=== PATIENT | female | born 1980 ===

== ENCOUNTER 2024-07-15 07:23 | Emergency (ER) | payer MEDICAID, SELFPAY ==
[2024-07-15 07:29] VITALS: BP 142/78; PULSE 79; RESP 18; TEMP 36.4; O2SAT 95; BMI 35.6
--- NOTE | 2024-07-15 07:58 | ED_ITS ---
HPI - Skin/Abscess/Foreign Bdy General Chief complaint: Skin/Abscess/Foreign Body Stated complaint: Rash on hip Time Seen by Provider: 07/15/24 07:56 Source: patient Mode of arrival: ambulatory Limitations: no limitations History of Present Illness ED Provider: Myra Hernandez PA-C HPI narrative: 43 yo female presents to the ER for evaluation of a rash on her trunk after using a waist ultimate hoops trainer. She reports her entire trunk is red, irritated, burning and itching. It is on her front and back. She did not sleep due to her symptoms. She denies any associated fevers, chills, facial swelling, difficulty swallowing, wheezing or difficulty breathing. No history of allergic reactions or similar presentations in the past. MD complaint: rash Onset (ago): hour(s) Location: generalized and back Severity: severe Quality: burning and pruritic Pain Consistency: constant Relieving factors: other (Ice) Exacerbating factors: none Context: other (Waist ultimate hoops trainer/compressive device) Associated symptoms: denies other symptoms Treatments prior to arrival: none Related Data Previous Rx's ?Medication ?Instructions ?Recorded diphenhydramine HCl 25 mg capsule 50 mg (2 x 25 mg) PO TID PRN 07/15/24 (Benadryl) itching #20 caps prednisone 10 mg tablets in a dose See Taper PO DAILY #30 ea 07/15/24 pack Allergies Allergy/AdvReac Type Severity Reaction Status Date / Time Penicillins Allergy Rash Verified 07/15/24 07:33 Review of Systems Review of Systems: Yes all other systems are reviewed and are negative [facility] Social History Social History Alcohol intake: never Smoked in Last 30 Days: No Use of substances other than those prescribed or required for medical reasons: No Any prior treatment program specific to substance use: No Advance Directives: No Advance Directives Information Provided: Yes Patient : No Physical Exam Vital Signs: Vital Signs: Last Vital Signs Temp 97.5 F 07/15/24 09:14 Pulse 79 07/15/24 09:14 Resp 18 07/15/24 09:14 BP 142/78 H 07/15/24 09:14 Pulse Ox 95 07/15/24 09:14 O2 Del Method Room Air 07/15/24 09:14 BMI result Body Mass Index 35.6 Appearance: Alert. Oriented X3. No acute distress. HEENT: normal inspection no facial swelling. CVS: Normal heart rate and rhythm. Pulses normal. Respiratory: No respiratory distress. Speaking in complete sentences, no wheezing Skin: Skin warm and dry. Normal skin color. Normal skin turgor. On the anterior and posterior trunk there is a diffuse, erythematous, warm, pruritic rash involving the entire trunk. Extremities: Normal inspection, no lower extremity swelling, no joint swelling Neuro: Oriented X 3. Grossly normal, nonfocal Medical Decision Making Medical Decision Making MDM Narrative: 43-year-old female presenting to the ER for evaluation of a burning, itching, rash on her anterior and posterior trunk. The rash is pretty diffuse and covers a large surface area of her skin. It seems to be directly related to the garment she was wearing yesterday. Given the large surface area will treat with oral prednisone and p.r.n. Benadryl. Patient counseled and all questions were answered. Stable for discharge home. Differential Diagnosis Differential Diagnoses: The differential diagnosis associated with the presentation includes Contact dermatitis, allergic reaction, hypersensitivity reaction, heat rash Prescription Management I considered prescription management with: Pain Medication and Antibiotic Critical Care Time Critical Care Time Critical Care Time: No Discharge Plan Discharge Clinical Impression: Contact dermatitis Qualifiers: Contact dermatitis type: irritant Contact dermatitis trigger: unspecified trigger Qualified Code(s): L24.9 - Irritant contact dermatitis, unspecified cause Patient Disposition: Home, Self-Care Instructions: Contact Dermatitis (DC) Additional Instructions: take the prescribed prednisone as directed - complete the entire course take the prescribed benadryl every 6-8 hours as needed for rash/itching/burning use ice as needed for itching and burning keep open to air, no restrictive or tight clothing If you develop new or worsening symptoms call 911 or come back to the ER for further evaluation. Prescriptions: New prednisone 10 mg tablets,dose pack See Taper PO DAILY Qty: 30 0RF Taper: Prednisone 40 mg daily for 3 Days and 0 Hour 30 mg daily for 3 Days and 0 Hour 20 mg daily for 3 Days and 0 Hour 10 mg daily for 3 Days and 0 Hour Rx Instructions: 40 mg Daily x3 days, 30 mg daily x3 days, 20 mg daily x3 days, 10 mg daily x3 days diphenhydramine HCl [Benadryl] 25 mg capsule 50 mg PO TID PRN (Reason: itching) Qty: 20 0RF Interventions: ED Discharge Assessment Last Done: 07/15/24 09:14 Discharge Date/Time: 07/15/24 09:14 Print Language: Maori
--- OUTSIDE RECORDS SUMMARY | 2024-07-15 07:58 | XMS_ITS | Continuity of Care Document ---
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 Phone Unavailable Unavailable Unavailable Allergies, Adverse Reactions, Alerts Substance Reaction Status Criticality aspirin Itching Active No Information Penicillins Rash Active No Information Medications Medication Instructions Dosage Effective Dates (start - stop) Status Comments ibuprofen 600 mg tablet SI tab(s) or ally every 6 hours PRN(as needed for pain) with food or milk - Active Bactrim DS 800 mg-160 mg tablet SI tab(s) orally 2 times a day for 3 day(s) - Active levothyroxine oral 75 mcg (0.075 mg) SI tab(s) to 75 mcg orally once a day - Active Iophen oral SI mL orally every 4 to 6 hours for 5 day(s) PRN(as needed for cough) SUGAR FREE - Active Zithromax 500 mg tablet SI tab(s) or ally once a day for 5 day(s) - Active Protonix 40 mg granules delayed release for susp in packet SI tab(s) orally once a day - Active Procedures Procedure Date PSYCHIATRIC DIAGNOSTIC E EXPANDED OUT/PT TRANSVAGINAL ECHO URINALYSIS, NON-AUTOMATE EXPANDED OUT/PT EXPANDED OUT/PT EXPANDED OUT/PT EXPANDED OUT/PT PSYCHIATRIC DIAGNOSTIC E EXPANDED OUT/PT EXPANDED OUT/PT Results Test Name Date and Time Measure Units Reference Range Abnormal Flag Status Comments Panel Description: OBTAINING SCREEN PAP SMEAR U nknown Document 0 00:00:00 See [facility] Unknown [facility] Conversion NoResultDesc 0 00:00:00 Unknown Panel Description: 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) Unkn own Document 1 15:56:00 See [facility] Unknown [facility] Conversion Image 1 15:56:00 See [facility] Archive: [id number] 2 JT - PATH/LAB Unknown [facility] Conversion Panel Description: CHLAMYDIA (CLP [id number]) Unknow n Document 1 15:56:00 See [facility] Unknown [facility] Conversion Image 1 15:56:00 See [facility] Archive: [id number] 2 JT - PATH/LAB Unknown [facility] Conversion Panel Description: GONORRHEA, DNA (CLP [id number]) U nknown Document 1 15:56:00 See [facility] Unknown [facility] Conversion Image 1 15:56:00 See [facility] Archive: [id number] 2 JT - PATH/LAB Unknown [facility] Conversion Advance Directives Directive Yes / No Effective Date File Name No Information Encounters Encounter Description Practice Location Reason(s) For Visit Diagnoses Date Provider Providers Copied on Encounter [facility], [address] [place] [address], [id number], tel:[phone] [facility] No Information 1 No Information [facility], [address] [place], [address], tel:[phone] Conversion SCREENING FOR MALIGNANT NEOPLASMS OF THE CERVIX No Information [facility], [address] [place] [address], [address], tel:[phone] Conversion No Information 1 No Information [facility], [place], [address], [place] tel:[phone] Conversion No Information 1 No Information [facility], [place], [address], [place] tel:[phone] Conversion No Information 1 No Information [facility], [place], [address], [place] tel:[phone] Conversion coughearache 0 1 No Information [facility], [place], [address], [place] tel:[phone] Conversion No Information 1 No Information [facility], [place], [address], [place] tel:[phone] Conversion ENCOUNTERS FOR UNSPECIFIED ADMINISTRATIVE PURPOSE 1 No Information [facility], [address] [place] [address], [address], [place] tel:[phone] [facility] Adult Medicine No Information 0 No Information [facility], [place], [address], [place] tel:[phone] Conversion (ASC-US)Cervica l High Risk Human Papilloma Virus DNA Test 0 No Information [facility], [address] [place], [address], [place] tel:[phone] [facility] No Information 0 No Information [facility], [address] [place], [address], [place] tel:[phone] Conversion PE W/ PAPabdominal pain in the central upper belly (epigastric) 0 No Information [facility], [address] [place] [address], [address], [place] tel:[phone] Conversion DEPRESSIVE DISORDER NOT ELSEWHERE CLASSIFIED 0 No Information [facility], [address] [place] [address], [address], [place] tel:[phone] [facility] Behavioral Health No Information 0 No Information EXPANDED OUT/PT [facility], [address] [place], [address], [place] tel:[phone] [facility] No Information June- 4200 9 No Information [facility], [address] [place], [address], [place] tel:[phone] Conversion PELVIC PAIN May-3 0200 9 No Information EXPANDED OUT/PT [facility], [address] [place], [address], [place] tel:[phone] [facility] No Information May-3 0200 9 No Information EXPANDED OUT/PT [facility], [address] [place], [address], [place] tel:[phone] [facility] Adult Medicine No Information May-1 9 No Information [facility], [address] [place] [address], [address], [place] tel:[phone] Conversion CYST OVARIAN,OTHER AND UNSPECIFIEDENCO UNTERS FOR OTHER SPECIFIED ADMINISTRATIVE PURPOSE May-1 3 9 No Information [facility], [address] [place] [address], [address], [place] tel:[phone] Conversion HYPOTHYROIDISMS CREENING EXAMINATION FOR VENEREAL DISEASE Apr-0 9200 9 No Information EXPANDED OUT/PT [facility], [address] [place], [address], [place] tel:[phone] [facility] Adult Medicine No Information Apr-0 9200 9 No Information EXPANDED OUT/PT [facility], [address] [place] [address], [address], [place] tel:[phone] [facility] Adult Medicine No Information Apr-0 7200 9 No Information [facility], [address] [place] [address], [address], [place] tel:[phone] Conversion ABDOMINAL PAIN RIGHT LOWER QUADRANTOTHER SPECIFIED ACQUIRED HYPOTHYROIDISM Apr-0 7200 9 No Information [facility], [address] [place] [address], [address], [place] tel:[phone] [facility] Behavioral Health No Information 9 No Information [facility], [address] [place] [address], [address], [place] tel:[phone] Conversion UNSPECIFIED ADJUSTMENT REACTION 9 No Information [facility], [address] [place], [address], tel:[phone] Conversion PAIN IN JOINT INVOLVING LOWER LEGACUTE PAIN DUE TO TRAUMA 9 No Information EXPANDED OUT/PT [facility], [address] [place], [address], tel:[phone] [facility] Adult Medicine No Information 9 No Information EXPANDED OUT/PT [facility], [address] [place], [address], tel:[phone] [facility] Adult Medicine No Information 8 No Information [facility], [place], [address], tel:[phone] Conversion LUMBAGOINS[place] UNSPECIFIEDANXI [place] UNSPECIFIEDOTHE R SPECIFIED COUNSELING 8 No Information Family History Family Member Type Diagnosis Age At Onset No Information Payers Payer name Insurance type Covered democrat ID Authoriza tion(s) No Information Social History Type Description Quantity Date Captured Comments Sex Female Smoking Status No Information Vital Signs Date / Time: Height Weight BMI Pulse Rate Blood Pressure Temperature Respiratory Rate Body Surface Area Head Circumference Head Circ. Percentile Wt./Kendell. Percentile BMI percentile Pulse Ox Inhaled Ox 64.00 in 85.000 kg (189.00 lbs) 32.4 0 kg/m eter (2) 60 /min 115/63 mm[Hg] 18 /min Chief Complaint And Reason For Visit No Information Reason For Referral Reason For Referral No Information History Of Present Illness Encounter Date Complaint History Of Prese nt Illness No Information Functional Status Date Functional Assessmen t No Information Instructions Date Instruction Additional Infor mation No Information Assessments Type Assessment Date No Information Patient Care Teams Name Effective Dates (start - stop) Status Members No Information
[2024-07-15 09:14] VITALS: BP 142/78; PULSE 79; RESP 18; TEMP 36.4; O2SAT 95
== END 2024-07-15 09:14 | disposition home or self-care (01) ==
PROVIDERS: Emergency Provider Emergency Medicine
DX: L24.9 Irritant contact dermatitis, unspecified cause (principal)
CPT/HCPCS: 99283; 99284

== ENCOUNTER 2024-09-14 14:38 | Emergency (ER) | payer OTHER, SELFPAY ==
--- NOTE | ~2024-09-14 | US_ITS ---
EXAMINATION: US TRIPLEX LOWER EXTREMITY, RIGHT CLINICAL INFORMATION: Right leg edema and pain. COMPARISON: None available. TECHNIQUE: Color-flow triplex imaging with spectral analysis and compression Doppler were performed on the right lower extremity. FINDINGS: Respiratory variation, normal compression and augmented flow are noted throughout the right lower extremity. The visualized common femoral vein, superficial femoral vein, profunda femoral vein, popliteal vein and midcalf peroneal and posterior tibial venous segments show no evidence of deep venous thrombosis. There is no Parker's cyst. US/US venous duplex LE RT IMPRESSION: No evidence of deep venous thrombosis involving the right lower extremity. Electronically signed by: Kyle Malave MD 09/14/2024 03:21 PM EDT
[2024-09-14 14:50] VITALS: BP 169/74; PULSE 77; RESP 16; TEMP 36.7; O2SAT 97; BMI 28.3
--- NOTE | 2024-09-14 14:52 | ED_ITS ---
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 reports pain in the calf and the vein when she touches it on her right lower proximal leg. no redness, warmth, chest pain or SOB. no visible bite rincon on her leg. she is walking with a limp because of pain in the calf muscle. no ankle or knee pain. no fever of chills. MD Complaint: extremity pain Onset (ago): day(s) (1) Pain Consistency: constant Location: right and lower extremity Severity scale (1-10): 6 Quality: aching Radiation: proximal Relieving factors: elevation and rest Exacerbating factors: weight bearing and palpation Associated symptoms: denies other symptoms Related Data Previous Rx's ?Medication ?Instructions ?Recorded diphenhydramine HCl 25 mg capsule 50 mg (2 x 25 mg) PO TID PRN 07/15/24 (Benadryl) itching #20 caps prednisone 10 mg tablets in a dose See Taper PO DAILY #30 ea 07/15/24 pack naproxen 500 mg tablet 500 mg PO BID PRN pain #20 t abs 09/14/24 Allergies Allergy/AdvReac Type Severity Reaction Status Date / Time Penicillins Allergy Rash Verified 09/14/24 14:52 Review of Systems Review of Systems: Yes all other systems are reviewed and are negative [facility] Social History Social History Alcohol intake: never Advance Directives: No Advance Directives Information Provided: No Physical Exam Exam: Exam: Appearance: Alert. Oriented X3. No acute distress. HEENT: normal inspection CVS: Normal heart rate and rhythm. Pulses normal. Respiratory: No respiratory distress. Skin: Skin warm and dry. Normal skin color. Normal skin turgor. No rashes. Extremities: right lower extremity is normal to inspection without edema, erythema or joint swelling. there is soft tissue tenderness of the proximal/medial lower leg and popliteal area. no calf tenderness. no visible lesions or bites on the skin. NV Intact distally. Neuro: Oriented X 3. limping gait, grossly normal. Vital Signs: Vital Signs: Last Vital Signs Temp 98.0 F 09/14/24 14:50 Pulse 77 09/14/24 14:50 Resp 16 09/14/24 14:50 BP 169/74 H 09/14/24 14:50 Pulse Ox 97 09/14/24 14:50 O2 Del Method Room Air 09/14/24 14:50 BMI result Body Mass Index 28.3 Medical Decision Making Medical Decision Making MDM Narrative: 43-year-old female presents to the ER for evaluation of right lower leg pain after she was swimming in [place] at a parking [employer] yesterday. She feels like she may have been stung by something when she was swimming. No bite rincon on exam. No erythema, swelling, induration. She does have soft tissue tenderness to the proximal/medial right lower leg and popliteal area. A venous duplex was done which does not show any evidence of deep vein thrombosis. No evidence of cellulitis. No known tick bite. Area was wrapped with an Bartolo wrap for compression and support. Will recommend she manages with conservative measures including rest, ice, compression, elevation, will prescribe NSAIDs for pain relief. She was encouraged to follow up with her primary care doctor. Return precautions were discussed. Stable for discharge home Differential Diagnosis Differential Diagnoses: The differential diagnosis associated with the presentation includes DVT, myositis, muscle strain, feliciano's cyst, cellulitis, insect bite, tick bite Independent Interpretation I performed an independent interpretation of an: Ultrasound Interpretation: No visible deep vein thrombosis Radiology Impression Discussion of test interpretation with radiology: I have reviewed the radiologist's reading. Tests considered The following testing was considered but not selected: Basic lab workup was considered Prescription Management I considered prescription management with: Pain Medication and Antibiotic Critical Care Time Critical Care Time Critical Care Time: No Discharge Plan Discharge Clinical Impression: Acute leg pain Patient Disposition: Home, Self-Care Instructions: Leg Pain (ED) Additional Instructions: your ultrasound today was normal Wear the Bartolo wrap as needed for compression and support. Ice and elevate her leg when possible. Take the prescribed anti-inflammatory as needed for pain. Monitor for swelling, redness, warmth and increased pain. Follow-up with your doctor or come back to the ER few worsening symptoms. Prescriptions: New naproxen 500 mg tablet 500 mg PO BID PRN (Reason: pain) Qty: 20 0RF No Action prednisone 10 mg tablets,dose pack See Taper PO DAILY Qty: 30 0RF Taper: Prednisone 40 mg daily for 3 Days and 0 Hour 30 mg daily for 3 Days and 0 Hour 20 mg daily for 3 Days and 0 Hour 10 mg daily for 3 Days and 0 Hour Rx Instructions: 40 mg Daily x3 days, 30 mg daily x3 days, 20 mg daily x3 days, 10 mg daily x3 days diphenhydramine HCl [Benadryl] 25 mg capsule 50 mg PO TID PRN (Reason: itching) Qty: 20 0RF Discharge Date/Time: 09/14/24 16:52 Print Language: Urdu
== END 2024-09-14 16:52 | disposition home or self-care (01) ==
PROVIDERS: Emergency Provider Emergency Medicine Emergency Medical Services; PCP Internal Medicine
DX: M79.661 Pain in right lower leg (principal)
CPT/HCPCS: 93971; 99281; 99283; 99284

== ENCOUNTER → 2024-09-14 14:52 | Outpatient (BNV) | payer MEDICAID, SELFPAY | PROVIDERS: PCP Internal Medicine; Visit Provider Radiology Diagnostic Radiology | DX: R22.41 Localized swelling, mass and lump, right lower limb (principal) | CPT/HCPCS: 93971 ==